=== PATIENT | female | born 1945 | race Hispanic/Latino ===

== ENCOUNTER → 2019-01-21 | Outpatient (CLI) | payer MEDICARE ==
[~2019-01-21] MED LIST: AMLO2.5T4 PO; CARV6.2579 PO; CITA-106 PO; FURO20TA4 PO; GABA-531 PO; HYDR-3420 PO; HYDR-4060 PO; IBUP-2077 PO; LEVO75TA10 PO; LOSA50TA64 PO; POTA20TA82 PO; SERT50TA12 PO; SIMV20TA6 PO; SUCR1TAB2 PO
== END | disposition home or self-care (01) ==
LOC: RAH 13:35
PROVIDERS: ATTEND Internal Medicine
DX: S09.90XA Unspecified injury of head, initial encounter (principal); G31.9 Degenerative disease of nervous system, unspecified; X58.XXXA Exposure to other specified factors, initial encounter; Y93.89 Activity, other specified; Y92.89 Other specified places as the place of occurrence of the external cause; Y99.8 Other external cause status
CPT/HCPCS: 70450